=== PATIENT | female | born 1945 | race American Indian/Alaskan Native ===

== ENCOUNTER 2017-04-03 09:21 | Day surgery (SDC) | payer MEDICARE ==
[~2017-04-03 09:21] MED LIST: TETRACAINE 0.5% OD SCH
--- NOTE | 2017-04-03 10:20 | Anesthesia Consultation ---
Anesthesia Consult and Med Hx Date of service: 04/03/17 - Airway Anesthetic Teeth Evaluation: Dentures (upper) ROM Head & Neck: Adequate Mental/Hyoid Distance: Adequate Mallampati Class: Class III Intubation Access Assessment: Possibly Difficult (`) - Pre-Operative Health Status ASA Pre-Surgery Classification: ASA2 Proposed Anesthetic Plan: MAC - Cardiovascular System Hx Hypertension: Yes (over 20years) - Central Nervous System Hx Psychiatric Problems: No - Gastrointestinal Hx Gastroesophageal Reflux Disease: No (PONV) - Other Systems Hx Alcohol Use: No Hx Substance Use: No Hx Cancer: No
[2017-04-03] MEDS ORDERED: ZOFRAN IV ONE (10:21)
--- NOTE | 2017-04-03 10:21 | Anesthesia Day of Surgery ---
Anesthesia Day of Surgery - Day of Surgery Patient Examined: Yes Patient H&P Reviewed: Yes Patient is NPO: Yes
[2017-04-03] MEDS: MYDRIACYL OD SCH ×3 (10:22→10:36)
[2017-04-03] MEDS: AK-Dilate OD SCH ×3 (10:22→10:36)
[2017-04-03] MEDS: VIGAMOX OD SCH ×3 (10:22→10:37)
[2017-04-03] MEDS ORDERED: VERSED ONE ×2 (10:55→11:22)
[2017-04-03] MEDS ORDERED: ZOFRAN ONE (10:59)
[2017-04-03] MEDS ORDERED: NACL P/F VIAL (10 ML) 10 ML ONE (11:23)
[2017-04-03] MEDS ORDERED: DIPRIVAN 10 MG/ML IV ONE (11:26)
--- NOTE | 2017-04-03 11:34 | Operative Report ---
Operative Report Operative Report: PATIENT'S NAME: DATE OF : DATE OF SURGERY: 04/03/2017 PREOPERATIVE DIAGNOSIS: Cataract right eye POSTOPERATIVE DIAGNOSIS: Same OPERATIVE PROCEDURE: Phacoemulsification with intraocular lens implantation, right eye SURGEON: Dhara Agudelo M.D. FRAMING [employer]PENTER SURGEON: Swati Lens: SA 60 WF 18.5 D ANESTHESIA: Monitored anesthesia care in combination with topical and intracameral anesthesia because of the established specific risk of reflux, arrhythmias, or anxiety attacks associated with ocular manipulation, as well as the difficulty of the cargo and ramp services manager to manage such potentially catastrophic events while simultaneously attempting to complete the surgical procedure and was deemed necessary for the patient's safety to have an Rn Med Surg present during the procedure whenever possible. An Rn Med Surg was utilized to regulate the intravenous sedation of the patient so the patient was cooperative yet not asleep in order for the patient to successfully maintain fixation of the eye on the operating light of the microscope. COMPLICATIONS: No surgical complications No blood loss. ALLERGIES: No known drug allergies PROGNOSIS: Excellent INDICATIONS FOR SURGERY: The patient is undergoing surgery in the hopes of eliminating or improving these visual difficulties. PROCEDURE: After arriving at the surgery center, the patient was given topical anesthetic and dilating drops, as noted in the record. The patient was then taken into the operating room and given more anesthetic drops. The eyelids , lashes, and lid margins were scrubbed with Betadine solution, and the patient was draped. The Nurse Rn Med Surg administered IV sedation and monitored the patient during the procedure. The eye was then fixated with a 0.12, and a stab incision was made in the peripheral clear cornea into the anterior chamber. This was made on my left side. Viscoelastic was next used to fill the anterior chamber. The eye was once again fixated with the 0.12 forceps and a keratome was used make an incision in clear cornea peripherally on my right hand side temporally. The capsule forceps were used to open the central anterior capsule and then make a continuous round capsulotomy. Hydrodissection was carried out utilizing a cannula and balanced salt solution to delineate the cortical material from the capsule and the nucleus from the cortical material. The phaco tip was introduced into the eye and used to remove the anterior cortical material in the area of the capsulotomy. Then the phaco tip was buried into the nucleus, and a chopping instrument was introduced into the eye and used to provide countertraction in the nucleus between this instrument and the phaco tip fracturing the nucleus. This procedure was repeated multiple times, providing multiple small segments of the lens, and then the phaco tip was used to remove each of these segments. An I/A tip was then used to remove the remaining cortex. The anterior chamber was refilled with viscoelastic. An one-piece, acrylic intraocular lens was then placed into an inserting cartridge. The tip of the inserting cartridge was introduced into the keratome incision and into the anterior chamber. The implant was gently advanced through the cartridge and into the eye, where it unfolded, and both haptics were placed in the capsular bag, where it centered nicely and appeared to be well fixated. After placement of the intraocular lens, the I~and~A handpiece was placed back into the eye and used to remove the viscoelastic, including viscoelastic that was behind the optic of the intraocular lens. The anterior chamber was then filled with balanced salt solution, and hydration of the wound was used to cause swelling of the wound and more appropriate watertight closure. When the wound was found to be firm, the patient was asked to comment on how bright the light was. If there was no light perception at all or if the light was substantially dimmer than during the rest of the surgery, the amount of fluid in the eye was decompressed to lower the intraocular pressure until the patient could see the bright light again. This was done to avoid any damage or decreased blood flow to the optic nerve. MEDICATIONS APPLIED AT END OF SURGERY: One drop of Pred Forte and Vigamox The patient was given a shield to wear at night and was instructed not to rub or push on the eye. DISCHARGE SUMMARY: The patient was released in stable condition. The patient and those with the patient were given a written sheet of postoperative instructions and counseling on any abnormal laboratory studies. The patient is to see us tomorrow for follow-up in the office and is to call immediately for any difficulties. Dhara Agudelo M.D. Date
--- NOTE | 2017-04-03 11:35 | Short Stay Summary ---
Short Stay Documentation Date of service: 04/03/17 - History H&P: obtained from office - Allergies and Medications Current Medications: Allergies No Known Allergies Allergy (Verified 03/31/17 10:14) Home Medications Medication Instructions Recorded Confirmed Last Taken Type Ascorbic Acid [Vitamin C] 500 mg PO DAILY 03/26/17 03/27/17 03/26/17 History Aspirin [Aspir-Low] 81 mg PO DAILY 03/26/17 04/03/17 04/03/17 07:30 History AtorvaSTATin [Lipitor] 20 mg PO QHS 03/26/17 04/03/17 04/02/17 21:00 History Coffee Extract [Green Coffee Abraham] 400 mg PO DAILY 03/26/17 04/03/17 04/02/17 09 :00 History Cyanocobalamin [Vitamin B-12] 1,000 mcg PO DAILY 03/26/17 04/03/17 04/02/17 09: 00 History Folic Acid [Folic Acid] 0.8 mg PO DAILY 03/26/17 04/03/17 04/02/17 09:00 History NIFEdipine XL [Procardia Xl] 90 mg PO QDAY 03/26/17 04/03/17 04/03/17 07:30 History Spironolactone [Aldactone] 25 mg PO QDAY 03/26/17 04/03/17 04/02/17 09:00 History Vitamin B Complex [Super B-50 1 each PO DAILY 03/26/17 04/03/17 04/02/17 09:00 History Complex] Active Medications Moxifloxacin HCl (Vigamox) 1 drops OD Q5MIN [facility] Stop: 04/03/17 23:59 Last Admin: 04/03/17 10:37 Dose: 1 drops Phenylephrine HCl (Ak-Dilate) 1 drops OD Q5MIN [facility] Stop: 04/03/17 23:59 Last Admin: 04/03/17 10:36 Dose: 1 drops Prednisolone Acetate (Pred Forte 1%) 1 drops OD QID [facility] Tetracaine HCl (Tetracaine 0.5%) 1 drops OD Q5M [facility] Stop: 04/03/17 23:59 Last Admin: 04/03/17 10:21 Dose: 1 drops Tropicamide (Mydriacyl) 1 drops OD Q5MIN [facility] Stop: 04/03/17 23:59 Last Admin: 04/03/17 10:36 Dose: 1 drops - Brief post op/procedure progress note Date of procedure: 04/03/17 Pre-op diagnosis: right cataract Post-op diagnosis: same Procedure: Phacoemulsification with intraocular lens insertion right eye Anesthesia: MAC Surgeon: MERLY HOBSON Estimated blood loss: none Pathology: none Condition: stable - Disposition Condition at discharge: Good Disposition: DC-01 TO HOME OR SELFCARE - Discharge Diagnoses (1) Cataract Status: Acute Qualifiers: Cataract type: age-related Age-related cataract type: nuclear Laterality : right Qualified Code(s): H25.11 - Age-related nuclear cataract, right eye
[2017-04-03] MEDS ORDERED: TYLENOL PO ONE (12:19)
[2017-04-03 13:18] VITALS: BP 128/75
[2017-04-03] MEDS ORDERED: PRED FORTE 1% OD SCH (14:00)
--- NOTE | 2017-04-03 14:42 | Post Anesthesia Evaluation ---
- Post Anesthesia Evaluation Patient Participated: Yes Airway Patent: Yes Stable Respiratory Function: Yes Nausea/Vomiting: No Temp > 96.8F: Yes Pain Manageable: Yes Adequeate Hydration: Yes Anesthesia Complications: No
== END 2017-04-03 13:15 | disposition home or self-care (01) ==
LOC: OR 09:21
DX: H26.9 Unspecified cataract (principal); K21.9 Gastro-esophageal reflux disease without esophagitis; I10 Essential (primary) hypertension; E78.00 Pure hypercholesterolemia, unspecified; M19.90 Unspecified osteoarthritis, unspecified site; F41.9 Anxiety disorder, unspecified; Z79.82 Long term (current) use of aspirin; Z79.899 Other long term (current) drug therapy; Z98.890 Other specified postprocedural states; Z90.710 Acquired absence of both cervix and uterus
CPT/HCPCS: 66984; J2250; J2405; J2704; V2632